=== PATIENT | male | born 1960 | race Caucasian/White ===

== ENCOUNTER 2020-10-01 08:07 | Emergency (ER) | payer BC ==
[~2020-10-01] VITALS: Ht 182.9 cm; Wt 86.2 kg
--- NOTE | 2020-10-01 08:33 | NUR ---
PT IS IN ROOM #2A. DR MCGEE EVALUATED THE PT.
[2020-10-01] MEDS ORDERED: IV NORMAL SALINE 1000 ML BAG IV ONE (08:45)
[2020-10-01 09:01] LABS: HEMATOCRIT 49.3 % (36.7-47.1); MEAN CORPUSCULAR HEMOGLOBIN 32.5 uug (23.8-33.4); MEAN CORPUSCULAR VOLUME 94.2 fL (73.0-96.2); PLATELET COUNT (AUTO) 143 K/uL (152-348)
[2020-10-01 09:02] LABS: ETHANOL < 3 MG/DL (0-0)
[2020-10-01 09:03] LABS: CREATININE 1.6 mg/dL (0.6-1.3); POTASSIUM 4.1 mmol/L (3.5-5.1)
[2020-10-01 09:09] LABS: BILIRUBIN,DIRECT 0.1 mg/dL (0.0-0.2); BILIRUBIN,TOTAL 0.4 mg/dL (0.2-1.0); TOTAL PROTEIN, SERUM 7.7 g/dL (6.4-8.2)
[2020-10-01 09:37] LABS: THYROID STIMULATING HORMONE 9.907 mIU/mL (0.358-3.740)
--- NOTE | 2020-10-01 10:59 | NUR ---
PT WAS D/C'd TO HOME. D/C INSTRUCTIONS GIVEN TO THE PT BY DR MCGEE.
[2020-10-01 11:00] VITALS: BP 136/71
== END 2020-10-01 11:01 | disposition home or self-care (01) ==
LOC: ER 08:07
DX: U07.1 COVID-19 (principal); R55 Syncope and collapse; R00.0 Tachycardia, unspecified; R91.8 Other nonspecific abnormal finding of lung field; E03.9 Hypothyroidism, unspecified; R79.89 Other specified abnormal findings of blood chemistry
CPT/HCPCS: 36415; 70030-TC; 71045; 84443; 85025; 85730; 93005; A4663; G0480; J7030